=== PATIENT | male | born 1945 | race Caucasian/White ===

== ENCOUNTER 2017-11-08 09:50 | Emergency (ER) | payer OTHER ==
[~2017-11-08] VITALS: Ht 175.2 cm; Wt 104.3 kg
[~2017-11-08 09:50] MED LIST: ASPIRIN CHILDRE81 MG PO; ATENOLOL25 MG PO; PERCOCET 325 MG1 TA2 PO; RAPAFLO8 MG PO; SIMVASTATIN20 MG PO
[2017-11-08] MEDS ORDERED: Synthroid,Levo25 MCG PO (10:02)
[2017-11-08] MEDS ORDERED: METFORMIN HCL500 MG PO (10:03)
[2017-11-08 10:33] LABS: BASO # 0.1 10*3/uL (0.0-0.1); BASO % 0.8 % (0.0-1.0); EOS # 0.1 10*3/uL (0.0-0.4); EOS % 1.5 % (1.0-4.0); HEMATOCRIT 39.7 % (42.0-52.0); HEMOGLOBIN 13.1 g/dl (14.0-18.0); LYMPH # 2.1 10*3/uL (1.3-4.4); LYMPH % 35.1 % (27.0-41.0); MEAN CELL VOLUME 95.2 fl (80.0-94.0); MEAN CORPUSCULAR HGB 31.4 pg (27.0-31.0); MEAN PLATELET VOLUME 11.4 fl (9.6-12.3); MONO # 0.5 10*3/uL (0.1-1.0); MONO % 7.8 % (3.0-9.0); NEUT # 3.2 10*3/uL (2.3-7.9); NEUT % 54.5 % (47.0-73.0); PLATELET COUNT AUTOMATED 200 10*3/uL (130-400); RED BLOOD COUNT 4.17 10*6/uL (4.50-5.90); RED CELL DISTRI WIDTH 12.8 % (0-14.5); WHITE BLOOD COUNT 5.9 10*3/uL (4.8-10.8)
[2017-11-08 10:42] LABS: ACT PARTIAL THROMBO TIME 25.5 SECONDS (20.8-31.5)
[2017-11-08 10:55] LABS: ALBUMIN 3.8 gm/dl (3.1-4.5); ALKALINE PHOSPHATASE 63 U/L (45-117); BUN 13 mg/dl (7-24); CHLORIDE 101 mmol/L (98-107); CREATININE 1.04 mg/dL (0.70-1.30); SGOT/AST 48 IU/L (3-35); SGPT/ALT 56 U/L (12-78); SODIUM 136 mmol/L (136-145); TOTAL PROTEIN 7.2 gm/dL (6.4-8.2)
[2017-11-08 10:58] LABS: TROPONIN I < 0.015 ng/ml (<0.045)
== END 2017-11-08 14:00 | disposition short-term general hospital (02) ==
LOC: ED 09:50
PROVIDERS: Emergency Medicine
DX: I63.8 Other cerebral infarction (principal); I10 Essential (primary) hypertension; E78.00 Pure hypercholesterolemia, unspecified; I25.10 Atherosclerotic heart disease of native coronary artery without angina pectoris; Z79.82 Long term (current) use of aspirin; Z91.040 Latex allergy status; Z79.899 Other long term (current) drug therapy

== ENCOUNTER 2018-03-02 11:45 | Emergency (ER) | payer OTHER ==
[~2018-03-02] VITALS: Ht 172.7 cm; Wt 99.8 kg
[~2018-03-02 11:45] MED LIST changes: +METFORMIN HCL500 MG PO; +Synthroid,Levo25 MCG PO
[2018-03-02] MEDS ORDERED: SEPTDS PO (12:03)
[2018-03-02] MEDS ORDERED: KEFLEX500 M1 PO (12:03)
== END 2018-03-02 12:09 | disposition home or self-care (01) ==
LOC: ED 11:45
DX: L02.212 Cutaneous abscess of back [any part, except buttock and flank] (principal); R03.0 Elevated blood-pressure reading, without diagnosis of hypertension; Z86.718 Personal history of other venous thrombosis and embolism; Z79.899 Other long term (current) drug therapy; Z91.041 Radiographic dye allergy status; Z86.73 Personal history of transient ischemic attack (TIA), and cerebral infarction without residual deficits

== ENCOUNTER → 2018-03-13 | Outpatient (CLI) | payer OTHER ==
[~2018-03-13] MED LIST changes: +KEFLEX500 M1 PO; +SEPTDS PO
== END | disposition home or self-care (01) ==
LOC: WOUNDCARE 03:33
DX: L03.312 Cellulitis of back [any part except buttock and flank] (principal); L02.212 Cutaneous abscess of back [any part, except buttock and flank]; E78.00 Pure hypercholesterolemia, unspecified; E05.90 Thyrotoxicosis, unspecified without thyrotoxic crisis or storm; E10.9 Type 1 diabetes mellitus without complications; I10 Essential (primary) hypertension; Z87.891 Personal history of nicotine dependence; Z86.73 Personal history of transient ischemic attack (TIA), and cerebral infarction without residual deficits

== ENCOUNTER → 2018-03-15 | Outpatient (CLI) | payer OTHER | END | disposition home or self-care (01) | LOC: WOUNDCARE 01:51 | DX: L02.212 Cutaneous abscess of back [any part, except buttock and flank] (principal); L03.312 Cellulitis of back [any part except buttock and flank]; E10.9 Type 1 diabetes mellitus without complications; E05.90 Thyrotoxicosis, unspecified without thyrotoxic crisis or storm; E78.00 Pure hypercholesterolemia, unspecified; I10 Essential (primary) hypertension; Z87.891 Personal history of nicotine dependence; Z86.73 Personal history of transient ischemic attack (TIA), and cerebral infarction without residual deficits ==

== ENCOUNTER → 2018-03-19 | Outpatient (CLI) | payer OTHER | END | disposition home or self-care (01) | LOC: WOUNDCARE 03:29 | DX: L02.212 Cutaneous abscess of back [any part, except buttock and flank] (principal); L03.312 Cellulitis of back [any part except buttock and flank]; E05.90 Thyrotoxicosis, unspecified without thyrotoxic crisis or storm; E78.00 Pure hypercholesterolemia, unspecified; E10.9 Type 1 diabetes mellitus without complications; I10 Essential (primary) hypertension; Z86.73 Personal history of transient ischemic attack (TIA), and cerebral infarction without residual deficits; Z87.891 Personal history of nicotine dependence ==

== ENCOUNTER → 2018-03-22 | Outpatient (CLI) | payer OTHER | END | disposition home or self-care (01) | LOC: WOUNDCARE 08:32 | DX: L02.212 Cutaneous abscess of back [any part, except buttock and flank] (principal); L03.312 Cellulitis of back [any part except buttock and flank]; E10.9 Type 1 diabetes mellitus without complications; E05.90 Thyrotoxicosis, unspecified without thyrotoxic crisis or storm; E78.00 Pure hypercholesterolemia, unspecified; I10 Essential (primary) hypertension; Z87.891 Personal history of nicotine dependence; Z86.73 Personal history of transient ischemic attack (TIA), and cerebral infarction without residual deficits ==

== ENCOUNTER → 2018-03-29 | Outpatient (CLI) | payer OTHER | END | disposition home or self-care (01) | LOC: WOUNDCARE 01:46 | DX: S21.201D Unspecified open wound of right back wall of thorax without penetration into thoracic cavity, subsequent encounter (principal); E10.9 Type 1 diabetes mellitus without complications; E05.90 Thyrotoxicosis, unspecified without thyrotoxic crisis or storm; E78.00 Pure hypercholesterolemia, unspecified; Z86.73 Personal history of transient ischemic attack (TIA), and cerebral infarction without residual deficits; Z87.891 Personal history of nicotine dependence; X58.XXXD Exposure to other specified factors, subsequent encounter ==

== ENCOUNTER 2019-09-06 17:04 | Emergency (ER) | payer OTHER ==
[~2019-09-06] VITALS: Wt 97.5 kg
[2019-09-06 18:00] LABS: BILIRUBIN NEGATIVE (NEGATIVE); BLOOD TRACE-INTACT (NEGATIVE); CLARITY SL CLOUDY (CLEAR); COLOR YELLOW (YELLOW); GLUCOSE NEGATIVE (NEGATIVE); KETONE NEGATIVE (NEGATIVE); LEUKO ESTERASE 1+ (NEGATIVE); NITRITE POSITIVE (NEGATIVE); SPECIFIC GRAVITY >= 1.030 (1.005-1.030); UROBILINOGEN 0.2 E.U./dl (0.2-1.0)
[2019-09-06 18:08] LABS: BACTERIA 4+; WBC 31-40 wbc/hpf (0-5)
[2019-09-06 18:08] LABS: BASO % 0.5 % (0.0-1.0); EOS # 0.1 10*3/uL (0.0-0.4); EOS % 1.8 % (1.0-4.0); HEMATOCRIT 36.5 % (42.0-52.0); HEMOGLOBIN 11.8 g/dl (14.0-18.0); LYMPH # 3.2 10*3/uL (1.3-4.4); LYMPH % 40.1 % (27.0-41.0); MEAN CELL VOLUME 95.8 fl (80.0-94.0); MEAN CORPUSCULAR HGB CONC 32.3 g/dl (33.0-37.0); MEAN PLATELET VOLUME 11.4 fl (9.6-12.3); MONO # 0.7 10*3/uL (0.1-1.0); MONO % 8.2 % (3.0-9.0); NEUT # 3.9 10*3/uL (2.3-7.9); NEUT % 49.1 % (47.0-73.0); PLATELET COUNT AUTOMATED 266 10*3/uL (130-400); RED BLOOD COUNT 3.81 10*6/uL (4.50-5.90); RED CELL DISTRI WIDTH 13.6 % (0-14.5); WHITE BLOOD COUNT 7.9 10*3/uL (4.8-10.8)
[2019-09-06 18:24] LABS: ALBUMIN 3.6 gm/dl (3.1-4.5); ALKALINE PHOSPHATASE 64 U/L (45-117); BUN 17 mg/dl (7-24); CHLORIDE 107 mmol/L (98-107); LIPASE 85 U/L (73-393); POTASSIUM 4.1 mmol/L (3.5-5.1); SGOT/AST 15 IU/L (3-35); SGPT/ALT 24 U/L (12-78); SODIUM 140 mmol/L (136-145); TOTAL PROTEIN 6.8 gm/dL (6.4-8.2)
[2019-09-06] MEDS ORDERED: CEPHALEXIN500 M1 PO (18:52)
== END 2019-09-06 19:23 | disposition home or self-care (01) ==
LOC: ED 17:04
PROVIDERS: Nurse Practitioner Family
DX: N39.0 Urinary tract infection, site not specified (principal); R41.0 Disorientation, unspecified; Z91.041 Radiographic dye allergy status; Z79.899 Other long term (current) drug therapy; Z79.82 Long term (current) use of aspirin; Z86.718 Personal history of other venous thrombosis and embolism

== ENCOUNTER 2019-09-14 17:17 | Emergency (ER) | payer OTHER ==
[~2019-09-14] VITALS: Ht 170.1 cm; Wt 93.0 kg
[~2019-09-14 17:17] MED LIST changes: +CEPHALEXIN500 M1 PO
[2019-09-14 18:15] LABS: BASO % 0.6 % (0.0-1.0); EOS # 0.1 10*3/uL (0.0-0.4); EOS % 1.7 % (1.0-4.0); HEMATOCRIT 38.3 % (42.0-52.0); HEMOGLOBIN 12.6 g/dl (14.0-18.0); LYMPH # 2.9 10*3/uL (1.3-4.4); LYMPH % 42.4 % (27.0-41.0); MEAN CELL VOLUME 94.6 fl (80.0-94.0); MEAN CORPUSCULAR HGB 31.1 pg (27.0-31.0); MEAN CORPUSCULAR HGB CONC 32.9 g/dl (33.0-37.0); MEAN PLATELET VOLUME 11.4 fl (9.6-12.3); MONO # 0.6 10*3/uL (0.1-1.0); MONO % 8.6 % (3.0-9.0); NEUT # 3.2 10*3/uL (2.3-7.9); NEUT % 46.4 % (47.0-73.0); PLATELET COUNT AUTOMATED 256 10*3/uL (130-400); RED BLOOD COUNT 4.05 10*6/uL (4.50-5.90); RED CELL DISTRI WIDTH 13.5 % (0-14.5); WHITE BLOOD COUNT 6.9 10*3/uL (4.8-10.8)
[2019-09-14 18:32] LABS: ALBUMIN 3.7 gm/dl (3.1-4.5); ALKALINE PHOSPHATASE 71 U/L (45-117); BUN 18 mg/dl (7-24); CHLORIDE 109 mmol/L (98-107); CREATININE 1.17 mg/dL (0.70-1.30); SGOT/AST 16 IU/L (3-35); SGPT/ALT 26 U/L (12-78); SODIUM 142 mmol/L (136-145); TOTAL PROTEIN 7.2 gm/dL (6.4-8.2)
[2019-09-14 18:40] LABS: TROPONIN I < 0.015 ng/ml (<0.045)
== END 2019-09-14 18:58 | disposition short-term general hospital (02) ==
LOC: ED 17:17
PROVIDERS: Internal Medicine
DX: I63.9 Cerebral infarction, unspecified (principal); I25.10 Atherosclerotic heart disease of native coronary artery without angina pectoris; E11.9 Type 2 diabetes mellitus without complications; Z91.041 Radiographic dye allergy status; Z79.899 Other long term (current) drug therapy; Z79.82 Long term (current) use of aspirin

== ENCOUNTER 2019-10-31 12:24 | Inpatient (IN) | payer OTHER ==
[~2019-10-31] VITALS: Ht 172.7 cm; Wt 101.2 kg
[2019-10-31 12:39] VITALS: BP 121/64
[2019-10-31 13:34] LABS: BASO % 0.3 % (0.0-1.0); EOS % 0.6 % (1.0-4.0); HEMATOCRIT 40.1 % (42.0-52.0); LYMPH # 2.5 10*3/uL (1.3-4.4); LYMPH % 36.2 % (27.0-41.0); MEAN CELL VOLUME 93.9 fl (80.0-94.0); MEAN CORPUSCULAR HGB 30.4 pg (27.0-31.0); MEAN CORPUSCULAR HGB CONC 32.4 g/dl (33.0-37.0); MEAN PLATELET VOLUME 11.5 fl (9.6-12.3); MONO # 0.5 10*3/uL (0.1-1.0); MONO % 7.2 % (3.0-9.0); NEUT # 3.8 10*3/uL (2.3-7.9); NEUT % 55.6 % (47.0-73.0); PLATELET COUNT AUTOMATED 221 10*3/uL (130-400); RED BLOOD COUNT 4.27 10*6/uL (4.50-5.90); RED CELL DISTRI WIDTH 13.2 % (0-14.5); WHITE BLOOD COUNT 6.9 10*3/uL (4.8-10.8)
[2019-10-31 13:48] LABS: ALBUMIN 3.7 gm/dl (3.1-4.5); ALKALINE PHOSPHATASE 66 U/L (45-117); BUN 17 mg/dl (7-24); CHLORIDE 107 mmol/L (98-107); CREATININE 1.17 mg/dL (0.70-1.30); SGOT/AST 15 IU/L (3-35); SGPT/ALT 25 U/L (12-78); SODIUM 141 mmol/L (136-145); TOTAL PROTEIN 7.3 gm/dL (6.4-8.2)
[2019-10-31 14:03] LABS: BILIRUBIN NEGATIVE (NEGATIVE); BLOOD TRACE-INTACT (NEGATIVE); CLARITY CLOUDY (CLEAR); COLOR YELLOW (YELLOW); GLUCOSE NEGATIVE (NEGATIVE); KETONE NEGATIVE (NEGATIVE); LEUKO ESTERASE 2+ (NEGATIVE); NITRITE POSITIVE (NEGATIVE); SPECIFIC GRAVITY 1.025 (1.005-1.030); UROBILINOGEN 0.2 E.U./dl (0.2-1.0)
[2019-10-31 14:07] LABS: BACTERIA 3+; RBC 0-2 rbc/hpf (0-2); WBC TNTC wbc/hpf (0-5)
[2019-10-31 15:15] VITALS: BP 144/74
[2019-10-31] MEDS ORDERED: Lopressor25 MG PO (15:16)
[2019-10-31] MEDS ORDERED: OXYBUTYNIN5 MG PO (15:16)
[2019-10-31] MEDS ORDERED: LEXAPRO10 MG PO (15:17)
[2019-10-31] MEDS ORDERED: PRAVACHOL40 MG PO (15:18)
[2019-10-31] MEDS ORDERED: LEVOTHYROXINE50 MCG PO (15:18)
[2019-10-31] MEDS ORDERED: FEOSOL325 MG PO (15:19)
[2019-10-31] MEDS ORDERED: RISPERIDONE0.5 MG PO (15:19)
[2019-10-31 20:00] VITALS: BP 143/81
[2019-11-01 08:00] VITALS: BP 160/77
[2019-11-01 12:00] VITALS: BP 126/65
[2019-11-01 16:00] VITALS: BP 115/65
[2019-11-01 20:00] VITALS: BP 101/57
[2019-11-02] VITALS: BP 128/67
[2019-11-02 08:00] VITALS: BP 162/83
[2019-11-02 12:00] VITALS: BP 106/59
== END 2019-11-02 14:47 | disposition other institution (70) | DRG 689 ==
LOC: ED 12:24 → EDHOLD 14:33 → 5E 14:33
PROVIDERS: Nurse Practitioner Family; ADMIT Internal Medicine
DX: N39.0 Urinary tract infection, site not specified (principal); G93.41 Metabolic encephalopathy; F01.51 Vascular dementia, unspecified severity, with behavioral disturbance; F23 Brief psychotic disorder; I48.0 Paroxysmal atrial fibrillation; I10 Essential (primary) hypertension; G47.33 Obstructive sleep apnea (adult) (pediatric); E11.9 Type 2 diabetes mellitus without complications; B96.89 Other specified bacterial agents as the cause of diseases classified elsewhere; F63.81 Intermittent explosive disorder; F41.9 Anxiety disorder, unspecified; Z86.73 Personal history of transient ischemic attack (TIA), and cerebral infarction without residual deficits; Z79.01 Long term (current) use of anticoagulants; Z79.899 Other long term (current) drug therapy; Z79.82 Long term (current) use of aspirin; Z95.5 Presence of coronary angioplasty implant and graft; Z98.52 Vasectomy status; Z88.8 Allergy status to other drugs, medicaments and biological substances

== ENCOUNTER 2019-11-02 15:00 | Inpatient (IN) | payer OTHER ==
[~2019-11-02] VITALS: Ht 172.7 cm; Wt 101.2 kg
[2019-11-02 14:49] VITALS: BP 123/72
--- NOTE | 2019-11-02 14:49 | NUR ---
DONALD NICKERSON a 74 year old M admitted via wheel chair from the 5TH FLOOR as a voluntary BY POA admission. Arrived on unit at 1449. ALLERGIES: IODINE, IVP DYE. Vital signs are: [id number] 123/72 SPO2 96% RA , BSG 121 The client'S POA VERBALLY CONSENTED TO the following forms with stated understanding: Authorization For The Release of Medical Information, Clothing List, Consent to Voluntary Admission and Hospitalization, Consent and Release Forms/Receipt of Rights, Acknowledgement of Advance Directive Information, Behavioral Health Consent Form, and Informed Consent of Medications. Admitted under the services of DONALD Sandhu MD. A search was conducted and hazardous articles were removed. Client was oriented to the unit. EDUAR KOROMA
[~2019-11-02 15:00] MED LIST changes: +FEOSOL325 MG PO; +LEVOTHYROXINE50 MCG PO; +LEXAPRO10 MG PO; +Lopressor25 MG PO; +OXYBUTYNIN5 MG PO; +PRAVACHOL40 MG PO; +RISPERIDONE0.5 MG PO
--- NOTE | 2019-11-02 15:57 | NUR ---
PM GROUP/LEISURE SKILLS PT IN ATTENDNACE THE LAST TWENTY MINUTES OF GROUP. PT CONFUSED ATTEMPTING TO PUT SMALL PAINT CONTAINER ON FOOT LIKE A SHOW. PT ATTEMPTING TO OUTSIDE PLANT ENGINEER THINGS ON THE GROUPND THAT AREN'T THERE. THIS STAFF WILL ATTEMPT PT ACTIVITY ASSESSMENT TOMORROW DUE TO PT LATE ADMIT.
--- NOTE | 2019-11-02 16:00 | NUR ---
IGNACIO SOTELO MADE AWARE OF ADMISSION. DR. LAWS MADE AWARE OF ADMISSION. STATES TO CHANGE ROCEPHIN IV TO CEFTIN 250 PO BID X 5 DAYS AND TO CONTINUE CURRENT MEDICATIONS.
--- NOTE | 2019-11-02 16:05 | NUR ---
pt given ativan po d/t increased anxiety and agitation. pt stating he is leaving, yelling out, confused. pt assisted with toileting, provided with snack and drink, attempted to get patient involved in group. all interventions ineffective.
--- NOTE | 2019-11-02 17:06 | NUR ---
DR. LAWS MADE AWARE OF ABRASION TO UPPER BACK. NEW ORDERS RECEIVED. ALSO CLARIFIED BSG CHECKS, STATES TO CHECK IN EARLY AM ONLY.
--- NOTE | 2019-11-02 17:40 | NUR ---
pt calmer at this time, visiting with son and [id number]. pt eating supper, appetite good.
[2019-11-02 20:00] VITALS: BP 127/69
--- NOTE | 2019-11-03 02:54 | NUR ---
P-CONFUSION, IRRITABLE, ISOLATIVE I-REDIRECTION WITH 1:1 THERAPEUTIC INTERVENTIONS AND PRESENT REALITY. EDUCATE AND ENCOURAGE GROUP THERAPY WHILE AWAKE R-PATIENT MEDICATION COMPLAINT AT HS. PATIENT WITH NO HALLUCINATION OR DELUSIONS. PATIENT WITH NO SUICIDAL OR HOMICIDAL IDEATIONS. PATIENT PROVIDED NOURISHEMENT AND FLUIDS AT HS. PATIENT WITH EPISODES OF IRRITABILITY WITH ATTEMPTING TO COMMUNICATE WITH PATIENT. PATIENT WITH NO INTERACTION WITH PEERS AT HS. PATIENT CONTINUES ON CEFTIN FOR +UTI WITH NO ADVERSE REACTION. P-CONTINUE TO ENCOURAGE MEDICATION COMPLIANCE, CONTINUE TO PRESENT REALITY, ENCOURAGE GROUP THERAPY WHILE AWAKE
--- NOTE | 2019-11-03 06:11 | NUR ---
PATIENT SLEPT 8 HOURS UNINTERRUPTED THROUGHOUT SHIFT. Q 15 MINUTE CHECKS MAINTAINED. 24 HR chart check completed. NO CHANGE IN SKIN INTEGRITY ON ASSESSMENT THIS SHIFT
--- NOTE | 2019-11-03 06:19 | NUR ---
PATIENT SLEPT 9 HOURS INTERRUPTED THROUGHOUT SHIFT. Q 15 MINUTE CHECKS MAINTAINED. 24 HR chart check completed. NO CHANGE IN SKIN INTEGRITY ON ASSESSMENT THIS SHIFT
[2019-11-03 06:49] LABS: BASO % 0.5 % (0.0-1.0); EOS # 0.2 10*3/uL (0.0-0.4); EOS % 3.3 % (1.0-4.0); HEMATOCRIT 40.7 % (42.0-52.0); HEMOGLOBIN 12.9 g/dl (14.0-18.0); LYMPH # 2.1 10*3/uL (1.3-4.4); LYMPH % 37.6 % (27.0-41.0); MEAN CORPUSCULAR HGB 29.8 pg (27.0-31.0); MEAN CORPUSCULAR HGB CONC 31.7 g/dl (33.0-37.0); MEAN PLATELET VOLUME 11.4 fl (9.6-12.3); MONO # 0.5 10*3/uL (0.1-1.0); NEUT # 2.7 10*3/uL (2.3-7.9); NEUT % 49.2 % (47.0-73.0); PLATELET COUNT AUTOMATED 205 10*3/uL (130-400); RED BLOOD COUNT 4.33 10*6/uL (4.50-5.90); RED CELL DISTRI WIDTH 13.2 % (0-14.5); WHITE BLOOD COUNT 5.5 10*3/uL (4.8-10.8)
[2019-11-03 07:03] LABS: ALBUMIN 3.6 gm/dl (3.1-4.5); BUN 19 mg/dl (7-24); CHLORIDE 108 mmol/L (98-107); CHOLESTEROL 100 mg/dL (<200); CREATININE 1.18 mg/dL (0.70-1.30); POTASSIUM 4.1 mmol/L (3.5-5.1); SGOT/AST 17 IU/L (3-35); SGPT/ALT 21 U/L (12-78); SODIUM 142 mmol/L (136-145); TOTAL PROTEIN 6.9 gm/dL (6.4-8.2); TRIGLYCERIDES 134 mg/dl (<150); VLDL CHOLESTEROL 27 mg/dL (6-40)
[2019-11-03 07:11] LABS: ALKALINE PHOSPHATASE 63 U/L (45-117); HDL CHOLESTEROL 51 mg/dl (40-60); LDL CHOLESTEROL 22 mg/dL (9-159)
[2019-11-03 07:30] LABS: VITAMIN D, 25-HYDROXY 21.4 ng/mL (30-100)
[2019-11-03 08:00] VITALS: BP 126/73
--- NOTE | 2019-11-03 11:59 | NUR ---
PSYCHOSOCIAL HX COMPLETED THIS DATE.
--- NOTE | 2019-11-03 12:11 | NUR ---
AM GROUP/EXERCISE/BRAIN GAMES PT IN ATTENDANCE AND PARTICIPATED TO BEST OF PT ABILITY. PT CONFUSED LOOKING FOR FAMILY, THIS STAFF ATTEMPTS REDIRECTION WHICH WORKS AT FIRST. TOWARDS END OF GROUP PT ATTEMPTING TO FLIP TABLE TO LEAVE ACTIVITY ROOM. PT REMOVED FROM ACTIVITY ROOM TO CALM. PT WILL CONTINUE TO ATTEND/PARTICIPATE TO BEST OF PT ABILITY IN FUTRUE GROUP SESSIONS.
[2019-11-03 20:00] VITALS: BP 135/66
--- NOTE | 2019-11-04 05:23 | NUR ---
P-CONFUSION, IRRITABLE, ISOLATIVE I-REDIRECTION WITH 1:1 THERAPEUTIC INTERVENTIONS AND PRESENT REALITY. EDUCATE AND ENCOURAGE GROUP THERAPY WHILE AWAKE R-PATIENT MEDICATION COMPLAINT AT HS. PATIENT WITH NO HALLUCINATION OR DELUSIONS. PATIENT WITH NO SUICIDAL OR HOMICIDAL IDEATIONS. PATIENT PROVIDED NOURISHEMENT AND FLUIDS AT HS. PATIENT WITH EPISODES OF IRRITABILITY WITH ATTEMPTING TO COMMUNICATE WITH PATIENT AND PROVIDE CARE. PATIENT WITH NO INTERACTION WITH PEERS AT HS. PATIENT CONTINUES ON CEFTIN FOR +UTI WITH NO ADVERSE REACTION. P-CONTINUE TO ENCOURAGE MEDICATION COMPLIANCE, CONTINUE TO PRESENT REALITY, ENCOURAGE GROUP THERAPY WHILE AWAKE
--- NOTE | 2019-11-04 05:52 | NUR ---
PATIENT SLEPT 8 HOURS OF INTERRUPTED SLEEP THROUGHOUT SHIFT. Q 15 MINUTE CHECKS MAINTAINED. 24 HR chart check completed. NO CHANGES IN SKIN INTEGRITY THIS SHIFT
[2019-11-04 08:00] VITALS: BP 129/75
--- NOTE | 2019-11-04 08:22 | NUR ---
DONALD NICKERSON [id number] Please refer to the physician's history and physical for past medical history, comorbid conditions, and allergies. Diagnosis: BRIEF PSYCHOTIC DISORDER Bharat Score: 18,AT RISK WOUND DESCRIPTIONS: Wound Number: 1 Location of the wound: UPPER BACK Thickness: Partial Size: 0.7cm X 0.9cm X 0.1cm Tunneling: NONE Undermining: NONE Sinus Tract: NONE Presence of Exudate:NONE Amount: None Color: Red Odor: None Periwound Skin Appearance: Normal Wound edges: APPROXIMATED Pain (associated with wound): DENIED AT TIME OF ASSESSMENT How does patient state this happened? PATIENT UNSURE HOW THIS HAPPENED. Surface the patient is resting on: Proform SKIN PREVENTION RECOMMENDATION: 1. Pressure redistribution support surface as appropriate 2. Elevate heels 3. Remove boots/TEDS every shift and reapply 4. Head of bed 30 degrees as tolerated 5. Assess nutrition and hydration 6. Manage moisture 7. Avoid the use of containment devices while in bed 8. Use absorptive products on surfaces limit layers of linens on bed 9. Turn and reposition every 1-2 hours in bed and every 1 hour in chair as tolerated 10. Weight shifts every 15 minutes while up in chair 11. Offloading with pillows or device to keep heels elevated off bed 12. Monitor skin at least every shift 13. Inspect under medical devices twice a day WOUND TREATMENT RECOMMENDATIONS: CONTINUE CURRENT ORDERS.
--- NOTE | 2019-11-04 09:40 | NUR ---
TREATMENT PLAN MEETING WAS HELD WITH DEANDRA COOMBS RN, JOB PLACEMENT OFFICER-S AND PARKS AND RECREATION WORKER. PLAN FOR DISCHARGE WHEN STABLE. PT. CAME TO [facility] FROM HOME. WILL FOLLOW WITH FAMILY TO DISCUSS DISCHARGE PLANS.
--- NOTE | 2019-11-04 12:25 | NUR ---
Shift chart check completed.
--- NOTE | 2019-11-04 12:29 | NUR ---
P- CONFUSION. RESTLESS/IRRITABLE AT TIMES. PREOCCUPIED ON GOING HOME. I- 1:1 THERAPEUTIC INTERACTION WITH EMOTIONAL SUPPORT AND VENTILATION OF FEELINGS PROVIDED. REORIENT FREQUENTLY WHEN CONFUSION IS NOTED. REDIRECT AND PROVIDE THERAPEUTIC COMMUNICATION WHEN IRRITABLE. PROVIDE NUTRITION AND FLUIDS. ENCOURAGE TO ATTEND/PARTICIPATE IN GROUP THERAPIES FOR EMOTIONAL SUPPORT AND VENTILATION OF FEELINGS. PROVIDE DIVERSIONAL ACTIVITIES, REASSURANCE, AND REORIENTATION TO SITUATION WHEN PREOCCUPIED. R- ALERT TO PERSON ONLY, REORIENT EASILY FOR A SHORT AMOUNT OF TIME. 1:1 INTERACTION EFFECTIVE. PATIENT PREOCCUPIED WITH WANTING TO GO HOME, PACING THE HALLS AT TIMES, UNAWARE OF WHERE HIS ROOM IS, ARGUMENTATIVE OF ROOM NUMBER - PT BELIEVES THAT HE IS IN ROOM 519. REORIENTATION, REASSUREANCE, AND REDIRECTION EFFECTIVE. PT ATTENDING AND INTERACTING IN GROUP THERAPIES. MEDICATION COMPLIANT WITH SOME DIFFICULTY. PT EASILY IRRITABLE, PLEASANT DURING INTERACTION. SITTING IN DINING ROOM WITH PEERS. EATING AND DRINKING ADEQUATELY. GAIT STEADY WHILE AMBULATING. REMAINS PREOCCUPIED WITH WANTING TO GO HOME; REASSURANCE, REDIRECTION, AND REORIENTATION EFFECTIVE AT TIMES. P- REORIENT, REASSURE, REDIRECT FREQUENTLY. PROVIDE 1:1 THERAPEUTIC INTERACTION WITH EMOTIONAL SUPPORT AND VENTILATION OF FEELINGS PROVIDED WHEN NECESSARY. ENCOURAGE ATTEND/PARTICIPATE IN GROUP THERAPIES. PROVIDE NUTRITION AND FLUIDS. FALLING STAR PROGRAM IN PLACE. Q15 MINUTE CHECKS MAINTAINED FOR SAFETY.
--- NOTE | 2019-11-04 14:59 | NUR ---
DR. LAWS ON UNIT TO ASSESS PATIENT.
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
--- NOTE | 2019-11-04 15:43 | NUR ---
PHYSICAL THERAPY Screen received spoke with [facility] staff pt is from a facility and is ambulatory but having balance issues to place PT eval for further assessment thank you Inna Sterling PT
--- NOTE | 2019-11-04 15:50 | NUR ---
Nursing screen received and chart reviewed. Per discussionw with nursing from [facility], patient has had a decline in functional status. Please send OT orders. Thank you. Monica Gil, OTR/L
[2019-11-04 19:40] VITALS: BP 136/85
--- NOTE | 2019-11-04 21:00 | NUR ---
MEDICATED WITH ATIVAN 1 MG PO FOR INCREASED ANXIETY & RESTLESSNESS.
--- NOTE | 2019-11-04 21:26 | NUR ---
24 HR chart check completed.
--- NOTE | 2019-11-05 01:09 | NUR ---
P-CONFUSION, ISOLATIVE, IRRITABLE I-PROVIDE 1:1 FOR EMOTIONAL SUPPORT, REDIRECT, ASSESS ORIENTATION, ADMINISTER MEDICATIONS, MONITOR SLEEP R-PT HAS BEEN AMBULATORY & WONDERING AROUND ON THE UNIT KEEPING TO HIMSELF. FREQUENT 1:1'S PROVIDED. ALERT TO PERSON & YEAR. CONFUSION PRESENT. HAS REQUIRED REDIRECTION SEVERAL TIMES. HAS FREQUENTLY TALKED ABOUT WRESTLING & STATED THAT HE HAS TO GO HOME & DOESNT BELONG HERE. DOES BECOME MILDLY IRRITABLE AT TIMES WHEN REORIENTED. MEMORY DEFICITS PRESENT. NO AGITATION. COMPLIANT TAKING MEDICAITONS WHOLE. HAS REQUIRED REDIRECTION TO LOCATION OF HIS ROOM DESPITE NAME BEING ON A SIGN AT THE DOOR. P-CONTINUE TO MONITOR & PROVIDE EMOTIONAL SUPPORT NEEDED.
--- NOTE | 2019-11-05 04:03 | NUR ---
Recommend follow up for wound care in outpatient setting patient refused at this time.
--- NOTE | 2019-11-05 06:15 | NUR ---
ATIVAN HAS BEEN EFFECTIVE & PT HAS SLEPT PAST 2199.
--- NOTE | 2019-11-05 06:24 | NUR ---
PT IMNCONTINENT OF VERY LARGE AMOUNT OF URINE THIS AM.
--- NOTE | 2019-11-05 07:03 | NUR ---
AM BEDSIDE GLUCOSE 104
[2019-11-05] MEDS ORDERED: ZYPREXA5 M1 PO (08:05)
[2019-11-05] MEDS ORDERED: OLANZAPINE10 MG PO (08:05)
[2019-11-05] MEDS ORDERED: RIVASTIGMINE T1.5 M1 PO (08:06)
[2019-11-05 08:12] VITALS: BP 133/80
--- NOTE | 2019-11-05 09:00 | NUR ---
TREATMENT PLAN MEETING WAS HELD WITH DR. MONTANEZ, DEANDRA COOMBS, RN, AT, SIGN HANGER-S AND ANGIOGRAPHY TECHNOLOGIST. PLAN FOR DISCHARGE AT THE END OF THE WEEK OR POSSIBLE NEXT WEEK DEPENDING ON STABILITY. PLAN AT THIS TIME IS FOR PT. TO RETURN HOME WITH FAMILY.
--- NOTE | 2019-11-05 11:46 | NUR ---
AM GROUP/EXERCISE AND PARACHUTE PT WAS PRESENT FOR MORNING GROUP THERAPY BUT CHOSE NOT TO PARTICIPATE. PT OBSERVED FOR A FEW MINUTES BEFORE LEAVING THE DAYROOM. PT RETURNED AT THE END OF THE GROUP SESSION STATING THAT HE WENT TO ANOTHER ROOM BECAUSE OF ALL OF THE NOISE. PT WAS ASKING WHERE SOMEONE WAS AND WAS SPEAKING NONSENSICALLY. PT EXHIBITED NO AGITATION WHILE IN THE GROUP.
--- NOTE | 2019-11-05 14:03 | NUR ---
PT BECOMING RESTLESS, AGITATED, EXIT SEEKING. PT IS GOING TO THE DOOR AND WHEN IT WILL NOT OPEN, PT BECOMING ANXIOUS, STATING "I DON'T KNOW WHERE I AM, TELL MY SON IT IS TIME TO COME GET ME BUT I DON'T KNOW WHAT ROOM I AM IN". "HOW DO I GET OUT OF HERE". PT UNABLE TO BE REDIRECTED. PT PROVIDED WITH 1:1, REORIENTED. ALL INTERVENTIONS INEFFECTIVE, PT GIVEN ATIVAN 1MG PO AT THIS TIME. PT COMPLIANT WITH MEDICATION WITHOUT DIFFICULTY. WILL CONTINUE TO MONITOR FOR EFFECTIVENESS OF PRN MEDICATION. WILL CONTINUE TO REORIENT AND REDIRECT DISPLAYS OF AGITATION OR ANXIOUSNESS. Q15 MIN MONITORING PER POLICY FOR SAFETY.
--- NOTE | 2019-11-05 15:41 | NUR ---
PM GROUP/CRAFTS PT WAS PRESENT FOR GROUP AND ATTEMPTED TO PARTICIPATE BUT IS VERY CONFUSED. PT WAS SPEAKING OUT OF CONTEXT AND EXIT SEEKING.
--- NOTE | 2019-11-05 15:59 | NUR ---
PO ATIVAN ONLY MINIMALLY EFFECTIVE. PT REMAINS EXIT SEEKING. SPEECH IS NONSENSICAL, PT IS RAMBLING, FLIGHT OF IDEAS. PT ABLE TO BE DIRECTED TO TAKE A SHOWER. NO OPEN AREAS NOTED TO SKIN DURING ASSESSMENT. PT IS CONFUSED AND REQUIRES MUCH 1:1.
[2019-11-05 19:44] VITALS: BP 134/78
--- NOTE | 2019-11-05 20:01 | NUR ---
24 HR chart check completed.
--- NOTE | 2019-11-05 21:15 | NUR ---
MEDICATED WITH ATIVAN 1 MG PO @ 2038 FOR RESTLESSNESS, INCREASED IRRITABILITY.
--- NOTE | 2019-11-05 23:40 | NUR ---
P-CONFUSION, ISOLATIVE, IRRITABLE, RESTLESS I-PROVIDE 1:1 FOR EMOTIONAL SUPPORT, REDIRECT, ASSESS ORIENTATION, ADMINISTER MEDICATIONS, MONITOR SLEEP. MAINTAIN ELOPEMENT PRECAUTIONS R-PT IS AMBULATORY & WONDERING AROUND ON THE UNIT KEEPING TO HIMSELF. HAS BEEN RESTLESS. GOES TO EXIT DOOR FREQUENTLY. EASILY IRRITABLE. STATED THAT HE HAS TO LEAVE & IS WAITING ON HIS COUSIN TO COME & PICK HIM UP. REQUIRES FREQUENT REDIRECTION. ALERT TO PERSON & YEAR. SEEMS MORE CONFUSED THAT PREVIOUS NIGHT. ARGUMENTATIVE WITH STAFF. MEMORY DEFICITS PRESENT. COMPLIANT TAKING MEDICAITONS WHOLE. P-CONTINUE TO MONITOR & PROVIDE EMOTIONAL SUPPORT NEEDED.
--- NOTE | 2019-11-06 00:56 | NUR ---
PT HAS BEEN UP X 2. RESTLESS & WANDERING IN THE HALLWAY. INCREASINGLY IRRITABLE WITH REDIRECTION. STATED HE HAS TO LEAVE & IS NOT GOING BACK TO BED. ARGUMENTATIVE. ENCOURAGED TO SIT IN A FELIPE CHAIR & PT WAS RECEPTIVE. LEANED BACK FOR COMFORT. PRESENTLY SITTING IN GROUP ROOM ACROSS FROM NURSES STATION.RESTING WITH EYES CLOSED. SENSORY DISTURBANCE SUSPECTED. NOTED TO PICK AT AIR & TAKE HANDS TO MOUTH IF EATING. APPEARS THAT PT IS REACHING OUT WITH HANDS & PICKING UP UNSEEN OBJECTS. EYES REMAIN CLOSED.
--- NOTE | 2019-11-06 06:13 | NUR ---
ATIVAN HAS BEEN EFFECTIVE & PT HAS SLEPT QUIETLY FOR 6 HOURS.
--- NOTE | 2019-11-06 06:40 | NUR ---
AM BEDSIDE GLUCOSE 100
--- NOTE | 2019-11-06 06:54 | NUR ---
MOM EFFECTIVE. PT HAD BM THIS AM.
[2019-11-06 07:51] VITALS: BP 133/81
--- NOTE | 2019-11-06 08:30 | NUR ---
TREATMENT PLAN MEETING WAS HELD WITH DR. MONTANEZ, DEANDRA COOMBS, RN, AT, BUSINESS SYSTEMS MANAGER-S AND POULTRY PICKER. PLAN FOR DISCHARGE NEXT WEEK. PT. WILL RETURN HOME WITH FAMILY AT THIS POINT. WILL FOLLOW.
--- NOTE | 2019-11-06 10:13 | NUR ---
Left a voicemail message for pt's son Galen requesting a return call to discuss discharge needs.
--- NOTE | 2019-11-06 11:41 | NUR ---
AM GROUP/MUSIC AND ART PT WAS IN AND OUT OF GROUP AND WAS ABLE TO PARTICIPATE MINIMALLY. PT IS VERY CONFUSED AND EXIT SEEKING. PT HAS A GOOD SENSE OF HUMOR AND WILL JOKE BUT DOES NOT RESPOND TO REORIENTATION. PT SORTED CARDS AND ATTEMPTED TO COLOR BUT HAD DIFFICULTY STAYING ON TASK FOR MORE THAN A FEW MINUTES.
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
[2019-11-06 19:31] VITALS: BP 106/60
--- NOTE | 2019-11-06 19:57 | NUR ---
P-CONFUSION AND EXIT SEEKING. I-PROVIDE ONE ON ONE FOR EMOTIONAL SUPPORT, REDIRECTION/ORIENTATION PROVIDED. R-EFFECTIVE WITH MUCH REDIRECTION. PATIENT IS ALERT TO SELF WITH CONFUSION. DENIES ANY HALLUCINATIONS, DELUSIONS, HI/SI OR PAIN. NO RESPONSE TO EMBROIDERY CUTTER STIMULI OBSERVED. ONE PERSON ASSIST WITH ACTIVITIES OF DAILY LIVING, CONTINENT OF BOWEL AND BLADDER. SET UP FOR MEALS, INTAKES ARE GOOD WITH INTAKES. MEDICATION COMPLIANT. Q 15 MINUTE SAFETY CHECKS. PATIENT IS AMBULATORY WITH STEADY GAIT. REDIRECTION WHEN GOING TO EXIT DOORS. P-CONTINUE TO MONITOR AGGRESSION AND MOOD; ONE ON ONE AND REDIRECTION NEEDED.
--- NOTE | 2019-11-06 22:27 | NUR ---
24 HR chart check completed.
--- NOTE | 2019-11-06 22:49 | NUR ---
P- CONFUSION, AGGRESSION I- 1:1 INTERACTION AND EMOTIONAL SUPPORT, REDIRECT NEEDED. R-PT IS ALERTAND ORIENTED, INTERACTIVE WITH STAFF AND PEERS, HAS NOT BEEN EXIT SEEKING OR AGGRESSIVE. NO SI/HI, NO HALLUCINATIONS, IS MED COMPLIANT, AMBULATES WITH A STEADY GAIT P- MONITOR BEHAVIOR AND MOOD. REDIRECT NEEDED, 15 MINUTE CHECKS
--- NOTE | 2019-11-07 05:15 | NUR ---
PATIENT SLEPT 8 HOURS.
[2019-11-07 07:40] VITALS: BP 142/70
--- NOTE | 2019-11-07 08:46 | NUR ---
PATIENT SITTING IN DINING ROOM, PLEASANTLY INTERACTING WITH STAFF/PEERS. RESPS EVEN AND UNLABORED ON ROOM AIR. NO S/S OF DISTRESS NOTED. NO VOICED COMPLAINTS AT THIS TIME. Q15 MINUTE CHECKS MAINTAINED FOR SAFETY.
--- NOTE | 2019-11-07 09:00 | NUR ---
TREATMENT PLAN MEETING WAS HELD WITH DR. MONTANEZ, RN, AT, [facility] TRANSFER IRON OPERATOR. PLAN FOR DISCHARGE NEXT WEEK WITH RETURN HOME WITH FAMILY.
--- NOTE | 2019-11-07 10:17 | NUR ---
P- CONFUSION; EXIT SEEKING; LABILE; TEARFUL; PREOCCUPIED I- REORIENT PATIENT FREQUENTLY. PROVIDE REDIRECTION AND REASSURANCE FREQUENTLY. PRESENT REALITY. 1:1 THERAPEUTIC INTERVENTIONS WITH EMOTIONAL SUPPORT AND VENTILATION OF FEELINGS PROVIDED. ENCOURAGE TO PARTICPATE IN GROUP THERAPIES FOR EMOTIONAL SUPPORT AND SOCIALIZATION. ENCOURAGE TO UTILIZE DEEP BREATHING WHEN BECOME IRRITABLE. R- REORIENTATION INEFFECTIVE. ALERT TO PERSON ONLY. PATIENT IS NONSENSICAL AT TIMES, RAMBLING SPEECH, CIRCUMSTANCIAL. REALITY PRESENTATION INEFFECTIVE. PT WAS TALKING WITH STAFF AND WAS TALKING ABOUT HIS PASSING, TEARFUL. A COUPLE MINUTES LATER PATIENT WAS TALKING ABOUT BEING IN THE HOSPITAL AND HE NEEDED TO GET OUT OF HERE TO GO SEE HER. REDIRECTION EFFECTIVE FOR A SHORT WHILE. 1:1 INTERACTION EFFECTIVE. PATIENT INTERACTIVE, WANDERING, PACING. MEDICATION COMPLIANT. EATING AND DRINKING ADEQUATELY. MOOD REMAINS LABILE. P- REORIENT AND PRESENT REALITY WHEN CONFUSION IS NOTED. REDIRECT AND REASSURE WITH EXIT SEEKING AND LABILE MOOD. ENCOURAGE TO ATTEND/PARTICIPATE IN GROUP THERAPIES. 1:1 THERAPEUTIC INTERACTION. PROVIDE MEDICATIONS WITH EDUCATION ON EACH. FALLING STAR PROGRAM MAINTAINED. Q15 MINUTE CHECKS MAINTAINED FOR SAFETY.
--- NOTE | 2019-11-07 12:17 | NUR ---
Shift chart check completed.
--- NOTE | 2019-11-07 12:49 | NUR ---
Met with pt's son West to discuss pt's status and discharge plan. West stated that the plan is to definitely take pt home upon [facility] discharge. West confirmed that pt has constant supervision by family members. This internal communications writer questioned if pt would be moved between children's homes as the cyanide case hardener had stated. West stated that this was discussed but that the family now recognizes that this would not be the best for the pt. Pt will remain in his home with family coming to him. West stated that he is aware that pt may need placement in a [facility] but that the family is not willing to make that change at this time. West did state that they are working with an county attorney to get pt's finances in order should placement be needed in the future. Discussed follow-up. West stated that he wants Dr Koch to follow pt for his psychiatric medications. If in the future pt is in need of psychiatrist, West stated that he would want [facility].
--- NOTE | 2019-11-07 15:43 | NUR ---
PM GROUP PT DID NOT ATTEND AFTERNOON GROUP THERAPY. PT WAS WALKING THE PATEL.
[2019-11-07 20:00] VITALS: BP 132/75
--- NOTE | 2019-11-07 21:31 | NUR ---
Patient alert to person only with confusion noted. Memory deficits noted. Mood calm and cooperative. Patient's speech is rambling and non-sensical. No s/s any responding to internal stimuli noted at this time. Patient compliant with HS medications without any difficulty. Provided 1:1 for emotional support. Patient was standing in doorway of his room and taking his clothes off. Redirected patient back into his room and to dress into his pajamas. Patient redirected easily. Plan to continue to encourage medication compliance. Also continue to offer emotional support and redirect/reorient when needed/appropriate. Will monitor moods/behaviors. Q 15 minute safety checks continued and maintained. See [facility] flowsheet for further documentation.
--- NOTE | 2019-11-08 00:24 | NUR ---
24 HR chart check completed.
--- NOTE | 2019-11-08 05:40 | NUR ---
Patient slept approx. 8 hours throughout shift. Q 15 minute safety checks continued and maintained.
[2019-11-08 07:41] VITALS: BP 110/62
--- NOTE | 2019-11-08 09:00 | NUR ---
TREATMENT PLAN MEETING WAS HELD WITH DEANDRA COOMBS, RN, AT, CARD PUNCHER-S AND REHABILITATION SPECIALIST. PLAN FOR DISCHARGE NEXT WEEK. PT. WILL RETURN HOME WITH FAMILY.
--- NOTE | 2019-11-08 11:55 | NUR ---
AM GROUP PT ATTENDED MORNING GROUP THERAPY AND PARTICIPATED BY SITTING QUIETLY AND READING THE NEWSPAPER. PT EXPRESSED NO EXIT SEEKING BEHAVIORS NOR EXHIBITED ANY AGITATION OR AGGRESSION WHILE IN GROUP
--- NOTE | 2019-11-08 15:37 | NUR ---
PM GROUP PT ATTENDED AFTERNOON GROUP THERAPY AND PARTICIPATED BY PUTTING A TOOL BOX TOGETHER AND SORTING CARDS. PT BEGAN EXIT SEEKING/ AT THE END OF GROUP AND WAS WATCHING THE DOOR SO WHEN HIS SONS CAME HE COULD "ESCAPE"
--- NOTE | 2019-11-08 18:41 | NUR ---
P-CONFUSED AGITATED I-1;1 MEDICATION COMPLIANCE GROUP ATTENDANCE AND PARTICIPATION.Q 15 MIN SAFETY CHECKS R-1;1 EFFECTIVE MEDICATION WITHOUT DIFFICULITY QQ 15 MIN CHECKS GROUP ATTEDANCE AND PARTICIPATION P- 1;1 MEDICATION COMPLIANCE Q 15 MIN SAFETY CHECKS GROUP ATTENDANCE AND PARTICIPATION
[2019-11-08 19:52] VITALS: BP 142/72
--- NOTE | 2019-11-09 01:43 | NUR ---
P-CONFUSION I-REDIRECTION WITH 1:1 THERAPEUTIC INTERVENTIONS AND PRESENT REALITY. EDUCATE AND ENCOURAGE GROUP THERAPY WHILE AWAKE R-PATIENT MEDICATION COMPLAINT AT HS. PATIENT WITH NO HALLUCINATION OR DELUSIONS. PATIENT WITH NO SUICIDAL OR HOMICIDAL IDEATIONS. PATIENT PROVIDED NOURISHEMENT AND FLUIDS AT HS. PATIENT INTERACTING WITH PEERS AND NURSING STAFF. P-CONTINUE TO ENCOURAGE MEDICATION COMPLIANCE, CONTINUE TO PRESENT REALITY, ENCOURAGE GROUP THERAPY WHILE AWAKE
--- NOTE | 2019-11-09 05:32 | NUR ---
PATIENT SLEPT 6 HOURS O UNINTERRUPTED SLEEP THROUGHOUT SHIFT. Q 15 MINUTE CHECKS MAINTAINED. 24 HR chart check completed.
[2019-11-09 08:00] VITALS: BP 134/81
--- NOTE | 2019-11-09 08:40 | NUR ---
Patient ambulating t/o unit with no c/o discomfort. Respirations easy and regular. Vital signs stable. No overt distress. EDUAR KOROMA
--- NOTE | 2019-11-09 11:03 | NUR ---
PT CONFUSED. VERBALIZING AGGRESSIVE THOUGHTS. REORIENTED. ASSESSED FOR MOOD, BEHAVIOR, AFFECT. MEDICATIONS ADMINISTERED PER ORDER. PT IS ORIENTED TO PERSON ONLY, STATES IS IS 2000 OR 2001. PT STATES HE IS IN [facility], BUT IS RECEPTIVE TO REORIENTATION THAT HE IS IN THE HOSPITAL. PT WANTS TO GO HOME TO SEE HIS FRIEND NICOLE AND THE BOYS. PT STATES HE IS SLEEPING AND EATING WELL. DENIES SADNESS OR DEPRESSED MOOD. PT STATES THAT HE WANTS TO "PUNCH THE NEW [place] IN HIS FACE WITH BALL BAT. SOONER OR LATER HE IS GOING TO SCREW UP AND DO SOMETHING STUPID." PT REDIRECTED AND IS OTHERWISE PLEASANT AT THIS TIME. OBSERVED TO BE DANCING IN HALLS. SHOWERED THIS AM. WILL CONTINUE TO REORIENT AND REDIRECT APPROPRIATE. WILL TO ASSESS PT'S MOOD AND BEHAVIORS. WILL CONTINUE TO ENCOURAGE MEDICATION COMPLIANCE. Q 15 MIN MONITORING PER POLICY.
--- NOTE | 2019-11-09 11:52 | NUR ---
AM GROUP/EXERCISES/LEISURE SKILLS PT IN ATTENDANCE AND PARTICIPATED BY PAINTING A WOODEN TOOLBOX. PT ON TASK BUT AGITATED STATING THINGS LIKE "DON'T TELL ME WHAT TO DO!" BUT EASILY REDIRECTED. PT WILL CONTINUE TO ATTEND/PARTICIPATE IN GROUP TO BEST OF PT ABILITY.
--- NOTE | 2019-11-09 15:54 | NUR ---
PM GROUP/CRAFT/MUSIC PT IN ATTENDNACE AND PARTICIPATED TO BEST OF ABILITY. PT PLEASANT AND CONSTANTLY ENCOURAGED TO PARTICIPATE IN CRAFT, ONCE PT BEGAN PARTICIPATING HE DID NOT STOP. PT SMILING AND PLEASANTLY CONFUSED. NO AGITATION NOTED.
[2019-11-09 20:04] VITALS: BP 119/64
--- NOTE | 2019-11-09 20:18 | NUR ---
24 HR chart check completed.
--- NOTE | 2019-11-09 23:05 | NUR ---
P-CONFUSION, IRRITABLE I-1:1 PROVIDED, ASSESS ORIENTATION, ADMINISTER MEDICATIONS, MONITOR SLEEP MAINTAIN ELOPEMENT PRECAUTIONS R-PT ALERT TO PERSON, PLACE & TIME. DID STATE THAT HE IS HERE BECAUSE HE HAS BEEN CONFUSED. MOOD IS PLEASANT WITH UNDERLYING IRRITABILITY. MEMORY DEFICITS PRESENT. PT MADE 1 IRRELEVANT STATEMENT DURING 1:1. STATED "I'VE GOT TO GET THE CONTAMINATION OF THE LAUNDRY UNDER CONTROL" RECEPTIVE TO REDIRECTION. SENTENCES WERE MORE CONNECTED & PT WAS ABLE TO CARRY ON A CONVERSATION THAT MADE SENSE. TALKED ABOUT HIS GIRLFRIEND BEING IN THE HOSPITAL & TALKED ABOUT HIS FAMILY. STATED THAT HE WANTS TO BE OUT OF HERE SOON. NO ATTEMPTS MADE TO LEAVE THE UNIT. PT STATED THAT HE IS SLEEPING GOOD. ABLE TO GO TO HIS ROOM WITH OUT REDIRECTION. ATE SNACK. COMPLIANT WITH MEDS. P-CONTINUE TO MONITOR & PROVIDE ASSISTANCE & EMOTIONAL SUPPORT NEEDED.
--- NOTE | 2019-11-10 05:16 | NUR ---
PT SLEPT PAST 2144 & WAS AWAKE FOR 1 HOUR & RESTED IN BED QUIETLY
--- NOTE | 2019-11-10 06:24 | NUR ---
INCONTINENT OF URINE THIS AM
[2019-11-10 08:00] VITALS: BP 120/63
--- NOTE | 2019-11-10 12:56 | NUR ---
NO ADVERSE MOODS OR BEHAVIORS NOTED. FALL PRECAUTIONS MAINTAINED. ALERT TO PERSON WITH MEMORY DEFICITS NTOED. PLEASANTLY CONFUSED. INTERACTIVE WITH STAFF AND PEERS. NO HALLUCINATIONS OR DELUSIONS NOTED. MEDICATION COMPLIANT. DENIES SI/HI, SADNESS AND DEPRESSION. PT STATES HE IS SLEEPING AND EATING WELL. WILL CONTINUE TO MONITOR BEHAVIORS WITH Q15 MINUTE SAFETY CHECKS AND ENCOURAGE MEDICATION COMPLIANCE.
--- NOTE | 2019-11-10 14:31 | NUR ---
SKIN ASSESSMENT COMPLETED. NO NEW AREAS OF CONCERN NOTED. BANDAID INTACT TO UPPER BACK ABRASION.
--- NOTE | 2019-11-10 19:40 | NUR ---
24 HR chart check completed.
[2019-11-10 20:00] VITALS: BP 118/59
--- NOTE | 2019-11-10 21:09 | NUR ---
P-CONFUSION I-1:1 PROVIDED, ASSESS ORIENTATION, ADMINISTER MEDICATIONS, MONITOR SLEEP MAINTAIN ELOPEMENT PRECAUTIONS R-PT ALERT TO PERSON, PLACE & TIME. MEMORY DEFICITS AT TIMES. DID STATE THAT HE IS HERE BECAUSE HE HAS BEEN CONFUSED & HE IS NOW REMEMBERING THINGS MORE CLEARLY. PLEASANT VERBAL INTERACTIONS. SPEECH IS CLEAR. THOUGHTS & SENTENCES ARE CONNECTED. PT ABLE TO CARRY ON A CONVERSATION THAT MAKES SENSE. NO ATTEMPTS MADE TO LEAVE UNIT. HAS NOT REQUIRED DIRECTIVES FOR LACATION OF HIS ROOM. ATE SNACK. COMPLIANT WITH MEDS. P-CONTINUE TO MONITOR & PROVIDE ASSISTANCE & EMOTIONAL SUPPORT NEEDED.
--- NOTE | 2019-11-11 05:49 | NUR ---
PT HAS SLEPT PAST 2129 WITH 1 BRIEF AWAKENING TO GO TO THE BATHROOM
--- NOTE | 2019-11-11 06:24 | NUR ---
AM BEDSIDE GLUCOSE 103
--- NOTE | 2019-11-11 06:28 | NUR ---
INCONTINENT OF URINE THIS AM
[2019-11-11 08:00] VITALS: BP 139/84
--- NOTE | 2019-11-11 08:30 | NUR ---
TREATMENT PLAN MEETING WAS HELD WITH DR. MONTANEZ, DEANDRA COOMBS, RN, AT, OUTSIDE PLANT TECHNICIAN-S AND GROUNDWATER MONITORING TECHNICIAN. PLAN FOR DISCHARGE MONDAY WITH RETURN HOME WITH FAMILY.
--- NOTE | 2019-11-11 08:40 | NUR ---
DR. LAWS ON UNIT TO ASSESS PATIENT.
--- NOTE | 2019-11-11 08:50 | NUR ---
DONALD NICKERSON [id number] Please refer to the physician's history and physical for past medical history, comorbid conditions, and allergies. Diagnosis: BRIEF PSYCHOTIC DISORDER Bharat Score: 18,AT RISK WOUND DESCRIPTIONS: PATIENT'S UPPER BACK WOUND HEALED AT TIME OF ASSESSMENT. SKIN IS PINK AND INTACT AT TIME OF ASSESSMENT. PATIENT DENIED PAIN AT TIME OF ASSESSMENT. Surface the patient is resting on: Proform SKIN PREVENTION RECOMMENDATION: 1. Pressure redistribution support surface as appropriate 2. Elevate heels 3. Remove boots/TEDS every shift and reapply 4. Head of bed 30 degrees as tolerated 5. Assess nutrition and hydration 6. Manage moisture 7. Avoid the use of containment devices while in bed 8. Use absorptive products on surfaces limit layers of linens on bed 9. Turn and reposition every 1-2 hours in bed and every 1 hour in chair as tolerated 10. Weight shifts every 15 minutes while up in chair 11. Offloading with pillows or device to keep heels elevated off bed 12. Monitor skin at least every shift 13. Inspect under medical devices twice a day
--- NOTE | 2019-11-11 11:35 | NUR ---
AM GROUP PT ATTENDED MORNING GROUP THERAPY AND PARTICIPATED BY READING THE NEWSPAPER. PT WAS IN AND OUT OF THE DAYROOM BUT EXHIBITED NO ADVERSE BEHAVIORS. PT IS PLEASANTLY CONFUSED.
--- NOTE | 2019-11-11 14:31 | NUR ---
Met with pt and his visitors today at pt's request. Pt stated that he is feeling much better. This aligner typewriter did observe mild confusion in pt and word searching as pt attempted to complete sentences. Pt's mood was appropriate as he interacted with his visitors and this ALONZO.
--- NOTE | 2019-11-11 14:54 | NUR ---
DR. LAWS NOTIFIED OF PATIENT BEING DISCHARGED TOMORROW.
--- NOTE | 2019-11-11 15:02 | NUR ---
Shift chart check completed.
--- NOTE | 2019-11-11 15:38 | NUR ---
PM GROUP PT ATTENDED AFTERNOON GROUP THERAPY AND PARTICIPATED BY WATCHING A MOVIE. PT WAS QUIET AND FOCUSED. PT EXHIBITED NO ADVERSE BEHAVIORS WHILE IN GROUP.
[2019-11-11 17:28] LABS: BILIRUBIN NEGATIVE (NEGATIVE); CLARITY CLEAR (CLEAR); COLOR YELLOW (YELLOW); GLUCOSE NEGATIVE (NEGATIVE); KETONE TRACE (NEGATIVE)
[2019-11-11 17:29] LABS: BLOOD NEGATIVE (NEGATIVE); LEUKO ESTERASE NEGATIVE (NEGATIVE); NITRITE NEGATIVE (NEGATIVE); SPECIFIC GRAVITY 1.015 (1.005-1.030); UROBILINOGEN 0.2 E.U./dl (0.2-1.0)
[2019-11-11 17:33] LABS: BACTERIA 1+; EPITHELIAL CELLS 0-2; MUCOUS TRACE; RBC 0-2 rbc/hpf (0-2)
[2019-11-11 19:54] VITALS: BP 133/78
--- NOTE | 2019-11-11 20:20 | NUR ---
EVENING/BINGO! PT IN ATTENDNACE AND PARTICIPATED IN ALL BINGO GAMES BUT ONE. PT EVENTUALLY GOT UP AND LEFT STATING AND SMILING TO EVERYONE "CANDI EVERYONE, ITS TIME FOR ME TO GO TO BED". PT ENCOURAGED TO STAY FOR SNACK BUT CHOSE TO HEAD TO BED ANYHOW. PT WILL CONTINUE TO ATTEND AND PARTICIPATE IN FUTURE GROUP SESSIONS TO BEST OF PT ABILITY.
--- NOTE | 2019-11-11 21:53 | NUR ---
Patient alert to person,place and time. Memory deficits noted. No s/s of responding to internal stimuli at this time. Mood calm but with underlying irritability noted. Patient isolative to his room this evening. Patient compliant with medications without any difficulty. Attempted to offer 1:1 for emotional support. Redirected/reoriented when needed. Plan to continue to encourage medication compliance. Also continue to offer emotional support and continue to redirect/reorient when needed/appropriate. Will continue to monitor moods/behaviors. Q 15 minute safety checks continued and maintained. See [facility] flowsheet for further documentation.
--- NOTE | 2019-11-12 00:18 | NUR ---
24 HR chart check completed.
--- NOTE | 2019-11-12 05:31 | NUR ---
Patient slept approx. 6 hours throughout shift with 1 awakening. Q 15 minute safety checks continued and maintained.
[2019-11-12 08:00] VITALS: BP 139/79
--- NOTE | 2019-11-12 08:30 | NUR ---
TREATMENT PLAN MEETING WAS HELD WITH DR. MONTANEZ, DEANDRA COOMBS, RN, AT, MARTIAL ARTS INSTRUCTOR-S AND DIE SETTER. PLAN FOR DISCHARGE TODAY WITH RETURN HOME WITH FAMILY TO PROVIDE 24 HOUR CARE.
--- NOTE | 2019-11-12 11:00 | NUR ---
SPOKE WITH PT. JOSE LUIS JONES REGARDING DISCHARGE. SON STATES HE WILL TRANSPORT PATIENT HOME WITH OUTREACH PROFESSIONAL TIME 12:30. FOLLOW UP SCHEDULED WITH DR. LAWS. FAMILY DECLINED PSYCHIATRIC FOLLOW UP.
--- NOTE | 2019-11-12 11:39 | NUR ---
AM GROUP PT WAS PRESENT FOR MORNING GROUP THERAPY BUT DID NOT PARTICIPATE. PT SAT QUIETLY AND OBSERVED. PT EXHIBITED NO ADVERSE BEHAVIORS WHILE IN GROUP. PT IS SET TO BE DISCHARGED FROM THE UNIT SOME TIME TODAY
[2019-11-12] MEDS ORDERED: B121000 MCG/1 IM (11:45)
[2019-11-12] MEDS ORDERED: RIVASTIGMINE TAR6 M1 PO (11:45)
[2019-11-12] MEDS ORDERED: MEMANTINE HCL10 MG PO (11:45)
[2019-11-12] MEDS ORDERED: VITAMIN D3125 MC1 PO (11:45)
[2019-11-12] MEDS ORDERED: RISPERIDONE0.5 MG PO (11:45)
--- NOTE | 2019-11-12 12:50 | NUR ---
POA PRESENT, PATIENT READY FOR DISCHARGE. ALL DISCHARGE INSTRUCTIONS REVIEWED WITH POA AND SIGNED. PATIENT ASSISTED IN WHEELCHAIR. ALL BELONGINGS GATHERED AND SENT WITH PATIENT OFF UNIT IN WHEELCHAIR, WITH STAFF ASSISTANCE TO PRIVATE VEHICLE.
--- NOTE | 2019-11-12 13:44 | NUR ---
Patient discharged to home today with 24 hr supervision being provided by pt's family. Recommendation was presented to pt's son/DPOADEVORAH Dodson that pt should be placed in [facility] or [facility] unit. [facility] stated that they are not ready to do that at this time but that they are making preparations should pt need placement in the future. [facility] also denied the need for psychiatric follow-up. An appointment was made with Dr Koch, pt's PCP, and a card was provided to [facility] with [facility] info should [facility] decide that pt needed psychiatric follow-up. While at [facility], pt did show improvement in mood and a slight improvement to his cognitive status. Pt was pleasant and cooperative at discharge.
== END 2019-11-12 12:50 | disposition home or self-care (01) | DRG 885 ==
LOC: 3N 15:00
PROVIDERS: Internal Medicine; ADMIT Psychiatry & Neurology Psychiatry
DX: F23 Brief psychotic disorder (principal); F02.81 Dementia in other diseases classified elsewhere, unspecified severity, with behavioral disturbance; N39.0 Urinary tract infection, site not specified; G30.9 Alzheimer's disease, unspecified; I10 Essential (primary) hypertension; E53.8 Deficiency of other specified B group vitamins; E55.9 Vitamin D deficiency, unspecified; E11.9 Type 2 diabetes mellitus without complications; I48.0 Paroxysmal atrial fibrillation; Z88.8 Allergy status to other drugs, medicaments and biological substances; Z79.899 Other long term (current) drug therapy; Z79.82 Long term (current) use of aspirin; Z79.01 Long term (current) use of anticoagulants

== ENCOUNTER → 2019-11-15 | Outpatient (CLI) | payer OTHER ==
[~2019-11-15] MED LIST changes: +B121000 MCG/1 IM; +MEMANTINE HCL10 MG PO; +OLANZAPINE10 MG PO; +RIVASTIGMINE T1.5 M1 PO; +RIVASTIGMINE TAR6 M1 PO; +VITAMIN D3125 MC1 PO; +ZYPREXA5 M1 PO
[2019-11-15 13:31] LABS: BASO % 0.4 % (0.0-1.0); EOS # 0.1 10*3/uL (0.0-0.4); HEMATOCRIT 41.3 % (42.0-52.0); HEMOGLOBIN 13.4 g/dl (14.0-18.0); LYMPH # 2.5 10*3/uL (1.3-4.4); LYMPH % 37.8 % (27.0-41.0); MEAN CELL VOLUME 93.4 fl (80.0-94.0); MEAN CORPUSCULAR HGB 30.3 pg (27.0-31.0); MEAN CORPUSCULAR HGB CONC 32.4 g/dl (33.0-37.0); MEAN PLATELET VOLUME 12.1 fl (9.6-12.3); MONO # 0.6 10*3/uL (0.1-1.0); MONO % 8.4 % (3.0-9.0); NEUT # 3.5 10*3/uL (2.3-7.9); NEUT % 52.1 % (47.0-73.0); PLATELET COUNT AUTOMATED 235 10*3/uL (130-400); RED BLOOD COUNT 4.42 10*6/uL (4.50-5.90); RED CELL DISTRI WIDTH 13.3 % (0-14.5); WHITE BLOOD COUNT 6.7 10*3/uL (4.8-10.8)
[2019-11-15 13:51] LABS: ALBUMIN 3.9 gm/dl (3.1-4.5); ALKALINE PHOSPHATASE 73 U/L (45-117); BUN 16 mg/dl (7-24); CHLORIDE 106 mmol/L (98-107); CHOLESTEROL 86 mg/dL (<200); CREATININE 1.02 mg/dL (0.70-1.30); FREE T4 0.94 ng/dl (0.76-1.46); HDL CHOLESTEROL 51 mg/dl (40-60); LDL CHOLESTEROL 8 mg/dL (9-159); POTASSIUM 4.3 mmol/L (3.5-5.1); SGOT/AST 14 IU/L (3-35); SGPT/ALT 23 U/L (12-78); SODIUM 141 mmol/L (136-145); TOTAL PROTEIN 7.3 gm/dL (6.4-8.2); TRIGLYCERIDES 133 mg/dl (<150); VLDL CHOLESTEROL 27 mg/dL (6-40)
[2019-11-15 14:32] LABS: VITAMIN D, 25-HYDROXY 28.7 ng/mL (30-100)
== END | disposition home or self-care (01) ==
LOC: US 12:30 → LAB 12:37
PROVIDERS: Internal Medicine
DX: E04.1 Nontoxic single thyroid nodule (principal); E11.9 Type 2 diabetes mellitus without complications; I10 Essential (primary) hypertension; E78.2 Mixed hyperlipidemia; E03.9 Hypothyroidism, unspecified; E55.9 Vitamin D deficiency, unspecified

== ENCOUNTER 2020-02-14 17:28 | Emergency (ER) | payer OTHER ==
[~2020-02-14] VITALS: Wt 106.6 kg
[2020-02-14 18:44] LABS: BASO % 0.3 % (0.0-1.0); EOS % 0.3 % (1.0-4.0); HEMATOCRIT 37.8 % (42.0-52.0); LYMPH # 1.9 10*3/uL (1.3-4.4); LYMPH % 27.8 % (27.0-41.0); MEAN CELL VOLUME 95.9 fl (80.0-94.0); MEAN CORPUSCULAR HGB CONC 33.3 g/dl (33.0-37.0); MEAN PLATELET VOLUME 11.1 fl (9.6-12.3); MONO % 15.3 % (3.0-9.0); NEUT # 3.7 10*3/uL (2.3-7.9); NEUT % 56.1 % (47.0-73.0); PLATELET COUNT AUTOMATED 169 10*3/uL (130-400); RED BLOOD COUNT 3.94 10*6/uL (4.50-5.90); RED CELL DISTRI WIDTH 13.1 % (0-14.5); WHITE BLOOD COUNT 6.7 10*3/uL (4.8-10.8)
[2020-02-14 18:54] LABS: ACT PARTIAL THROMBO TIME 27.1 SECONDS (20.0-32.1)
[2020-02-14 18:59] LABS: ALBUMIN 3.7 gm/dl (3.1-4.5); ALKALINE PHOSPHATASE 60 U/L (45-117); BUN 18 mg/dl (7-24); CHLORIDE 105 mmol/L (98-107); CREATININE 1.19 mg/dL (0.70-1.30); LIPASE 76 U/L (73-393); POTASSIUM 3.8 mmol/L (3.5-5.1); SGOT/AST 19 IU/L (3-35); SGPT/ALT 26 U/L (12-78); SODIUM 134 mmol/L (136-145); TOTAL PROTEIN 7.6 gm/dL (6.4-8.2)
[2020-02-14 19:02] LABS: TROPONIN I < 0.015 ng/ml (<0.045)
[2020-02-14] MEDS ORDERED: CEPHALEXIN500 M1 PO (21:44)
== END 2020-02-14 20:32 | disposition home or self-care (01) ==
LOC: ED 17:28
PROVIDERS: Nurse Practitioner Family
DX: G45.9 Transient cerebral ischemic attack, unspecified (principal); L08.9 Local infection of the skin and subcutaneous tissue, unspecified; I25.10 Atherosclerotic heart disease of native coronary artery without angina pectoris; E11.9 Type 2 diabetes mellitus without complications; I10 Essential (primary) hypertension; I48.91 Unspecified atrial fibrillation; Z79.82 Long term (current) use of aspirin; Z79.899 Other long term (current) drug therapy; Z91.041 Radiographic dye allergy status; Z86.718 Personal history of other venous thrombosis and embolism; Z86.73 Personal history of transient ischemic attack (TIA), and cerebral infarction without residual deficits

== ENCOUNTER → 2020-03-30 | Outpatient (CLI) | payer OTHER | END | disposition home or self-care (01) | LOC: US 12:47 | DX: R60.0 Localized edema (principal) ==

== ENCOUNTER → 2022-05-17 | Outpatient (CLI) | payer OTHER ==
[~2022-05-17] MED LIST changes: +ATIVAN1 MG PO; +DEPAKOTE250 MG PO; +DITROPAN XL5 MG PO; +NAMENDA10 MG PO; +PRAVASTATIN SOD10 MG PO; +RISPERIDONE1 M1 PO; +SYNTHROID,LEV125 MCG PO
== END | disposition home or self-care (01) ==
LOC: WOUNDCARE 00:41
PROVIDERS: ATTEND Nurse Practitioner Family
DX: T81.89XA Other complications of procedures, not elsewhere classified, initial encounter (principal); S21.209A Unspecified open wound of unspecified back wall of thorax without penetration into thoracic cavity, initial encounter; E10.622 Type 1 diabetes mellitus with other skin ulcer; L98.491 Non-pressure chronic ulcer of skin of other sites limited to breakdown of skin; E05.90 Thyrotoxicosis, unspecified without thyrotoxic crisis or storm; E78.00 Pure hypercholesterolemia, unspecified; G30.9 Alzheimer's disease, unspecified; I10 Essential (primary) hypertension; I48.91 Unspecified atrial fibrillation; F02.80 Dementia in other diseases classified elsewhere, unspecified severity, without behavioral disturbance, psychotic disturbance, mood disturbance, and anxiety; Z87.891 Personal history of nicotine dependence; Z90.49 Acquired absence of other specified parts of digestive tract; Z95.5 Presence of coronary angioplasty implant and graft; Z95.818 Presence of other cardiac implants and grafts; Z86.73 Personal history of transient ischemic attack (TIA), and cerebral infarction without residual deficits; X58.XXXA Exposure to other specified factors, initial encounter; Y93.89 Activity, other specified; Y92.89 Other specified places as the place of occurrence of the external cause; Y99.8 Other external cause status; Y92.238 Other place in hospital as the place of occurrence of the external cause; Y83.8 Other surgical procedures as the cause of abnormal reaction of the patient, or of later complication, without mention of misadventure at the time of the procedure

== ENCOUNTER → 2022-05-31 | Outpatient (CLI) | payer OTHER | END | disposition home or self-care (01) | LOC: WOUNDCARE 01:15 | PROVIDERS: ATTEND Nurse Practitioner Family | DX: T81.89XD Other complications of procedures, not elsewhere classified, subsequent encounter (principal); L98.492 Non-pressure chronic ulcer of skin of other sites with fat layer exposed; C44.91 Basal cell carcinoma of skin, unspecified; S21.209D Unspecified open wound of unspecified back wall of thorax without penetration into thoracic cavity, subsequent encounter; E78.00 Pure hypercholesterolemia, unspecified; E05.90 Thyrotoxicosis, unspecified without thyrotoxic crisis or storm; G30.9 Alzheimer's disease, unspecified; I48.91 Unspecified atrial fibrillation; I10 Essential (primary) hypertension; F02.80 Dementia in other diseases classified elsewhere, unspecified severity, without behavioral disturbance, psychotic disturbance, mood disturbance, and anxiety; Z86.73 Personal history of transient ischemic attack (TIA), and cerebral infarction without residual deficits; Z87.891 Personal history of nicotine dependence; Z90.49 Acquired absence of other specified parts of digestive tract; Z95.5 Presence of coronary angioplasty implant and graft; Z95.818 Presence of other cardiac implants and grafts; X58.XXXD Exposure to other specified factors, subsequent encounter ==

== ENCOUNTER 2022-07-26 11:50 | Emergency (ER) | payer OTHER ==
[~2022-07-26] VITALS: Wt 85.3 kg
[2022-07-26 12:50] LABS: BASO % 0.4 % (0.0-1.0); EOS % 0.8 % (1.0-4.0); LYMPH # 2.2 10*3/uL (1.3-4.4); MEAN CELL VOLUME 98.9 fl (80.0-94.0); MEAN CORPUSCULAR HGB 32.8 pg (27.0-31.0); MEAN CORPUSCULAR HGB CONC 33.1 g/dl (33.0-37.0); MEAN PLATELET VOLUME 10.8 fl (9.6-12.3); MONO # 0.5 10*3/uL (0.1-1.0); MONO % 9.8 % (3.0-9.0); NEUT # 2.4 10*3/uL (2.3-7.9); NEUT % 46.8 % (47.0-73.0); PLATELET COUNT AUTOMATED 145 10*3/uL (130-400); RED BLOOD COUNT 3.54 10*6/uL (4.50-5.90); RED CELL DISTRI WIDTH 13.4 % (0-14.5); WHITE BLOOD COUNT 5.2 10*3/uL (4.8-10.8)
[2022-07-26 13:02] LABS: ACT PARTIAL THROMBO TIME 26.5 SECONDS (20.0-32.1); INTERNATIONAL NORM RATIO 1.1 (2.0-3.5)
[2022-07-26 13:16] LABS: ALKALINE PHOSPHATASE 56 U/L (45-117); BUN 18 mg/dl (7-24); CHLORIDE 108 mmol/L (98-107); LIPASE 71 U/L (73-393); POTASSIUM 3.9 mmol/L (3.5-5.1); SGPT/ALT 18 U/L (12-78); SODIUM 141 mmol/L (136-145); TOTAL PROTEIN 6.1 gm/dL (6.4-8.2)
== END 2022-07-26 14:43 ==
LOC: ED 11:50
PROVIDERS: Emergency Medicine
DX: R41.82 Altered mental status, unspecified (principal); Z98.890 Other specified postprocedural states; Z90.49 Acquired absence of other specified parts of digestive tract; Z79.899 Other long term (current) drug therapy; Z79.82 Long term (current) use of aspirin; Z91.041 Radiographic dye allergy status

== ENCOUNTER → 2023-08-23 | Outpatient (CLI) | payer MEDICARE | END | disposition home or self-care (01) | LOC: CT 11:00 | PROVIDERS: ATTEND Urology | DX: K42.9 Umbilical hernia without obstruction or gangrene (principal); N50.9 Disorder of male genital organs, unspecified; I25.10 Atherosclerotic heart disease of native coronary artery without angina pectoris; K59.00 Constipation, unspecified; K57.30 Diverticulosis of large intestine without perforation or abscess without bleeding ==